=== PATIENT | male | born 1940 | race Native Hawaiian/Other Pacific Islander ===

== ENCOUNTER 2016-05-23 10:52 | Emergency (ER) | payer OTHER ==
[~2016-05-23] VITALS: Ht 172.7 cm; Wt 56.7 kg
[2016-05-23 11:00] VITALS: TEMP 98.1
[2016-05-23 11:36] VITALS: BP 140/76
== END 2016-05-23 11:36 | disposition home or self-care (01) ==
LOC: ED 10:52
DX: K62.89 Other specified diseases of anus and rectum (principal)
CPT/HCPCS: 82272; 99283

== ENCOUNTER 2016-06-27 19:11 | Outpatient (CLI) | payer OTHER ==
[2016-06-27] MEDS ORDERED: LORA1TAB17 PO (19:31)
[2016-06-27] MEDS ORDERED: ROSADAN 0.75% EX (19:32)
[2016-06-27] MEDS ORDERED: CITALOPRAM20 MG PO (19:32)
[2016-06-27] MEDS ORDERED: HYDR5TAB9 PO (19:34)
[2016-06-27] MEDS ORDERED: CLOTCRE5 EX (19:35)
[2016-06-27] MEDS ORDERED: TRAM50TA PO (19:36)
[2016-06-27] MEDS ORDERED: TRAZ100T OR (19:37)
[2016-06-27] MEDS ORDERED: TRIA0.1C5 TOP (19:38)
[2016-06-27] MEDS ORDERED: ASPIRIN 81 LOW81 MG PO (19:39)
== END 2016-06-27 19:14 | disposition short-term general hospital (02) ==
LOC: AMB 19:11
DX: M79.632 Pain in left forearm (principal); R07.89 Other chest pain; R53.1 Weakness; W18.39XA Other fall on same level, initial encounter; Y92.098 Other place in other non-institutional residence as the place of occurrence of the external cause
CPT/HCPCS: A0425; A0427

== ENCOUNTER 2016-06-27 19:23 | Inpatient (IN) | payer OTHER ==
[~2016-06-27] VITALS: Ht 182.9 cm; Wt 59.0 kg
[2016-06-27] MEDS ORDERED: LORA1TAB17 PO (19:31)
[2016-06-27] MEDS ORDERED: CITALOPRAM20 MG PO (19:32)
[2016-06-27] MEDS ORDERED: ROSADAN 0.75% EX (19:32)
[2016-06-27 19:34] VITALS: BP 146/72; TEMP 97.8
[2016-06-27] MEDS ORDERED: HYDR5TAB9 PO (19:34)
[2016-06-27] MEDS ORDERED: CLOTCRE5 EX (19:35)
[2016-06-27] MEDS ORDERED: TRAM50TA PO (19:36)
[2016-06-27] MEDS ORDERED: TRAZ100T OR (19:37)
[2016-06-27] MEDS ORDERED: TRIA0.1C5 TOP (19:38)
[2016-06-27] MEDS ORDERED: ASPIRIN 81 LOW81 MG PO (19:39)
[2016-06-27 20:03] LABS: PLATELET COUNT 216 K/uL (142-355)
[2016-06-27 20:18] LABS: POTASSIUM 3.9 mmol/L (3.6-5.2)
[2016-06-28] VITALS (24 sets, daily range): BP systolic 117–179; BP diastolic 54–92; TEMP 97–98.2; Ht 182.9 cm; Wt 59.0 kg
[2016-06-28 05:49] LABS: PLATELET COUNT 165 K/uL (142-355)
[2016-06-28 06:14] LABS: POTASSIUM 4.5 mmol/L (3.6-5.2)
[2016-06-28 14:29] LABS: POTASSIUM 4.2 mmol/L (3.6-5.2)
[2016-06-29] VITALS (17 sets, daily range): BP systolic 136–172; BP diastolic 52–92; TEMP 98–98.9
[2016-06-29 06:07] LABS: PLATELET COUNT 110 K/uL (142-355)
[2016-06-29 06:52] LABS: POTASSIUM 2.9 mmol/L (3.6-5.2)
[2016-06-30] VITALS: BP 142/48; TEMP 99.8
[2016-06-30 04:00] VITALS: BP 137/57; TEMP 99.1
[2016-06-30 05:34] LABS: PLATELET COUNT 94 K/uL (142-355)
[2016-06-30 05:51] LABS: POTASSIUM 3.3 mmol/L (3.6-5.2)
[2016-06-30 08:00] VITALS: BP 142/60; TEMP 98
[2016-06-30 12:00] VITALS: BP 143/58; TEMP 97.8
[2016-06-30 16:00] VITALS: BP 140/62; TEMP 98.3
[2016-06-30 20:00] VITALS: BP 147/62; TEMP 99.1
[2016-07-01] VITALS: BP 141/49; TEMP 97.8
[2016-07-01 04:00] VITALS: BP 162/67; TEMP 99
[2016-07-01 05:12] LABS: PLATELET COUNT 92 K/uL (142-355)
[2016-07-01 05:25] LABS: POTASSIUM 2.9 mmol/L (3.6-5.2); SODIUM 142 mmol/L (136-145)
[2016-07-01 08:00] VITALS: BP 142/53; TEMP 98.3
[2016-07-01 12:00] VITALS: BP 154/71; TEMP 98.7
[2016-07-01 16:00] VITALS: BP 176/67; TEMP 98.9
[2016-07-01 20:00] VITALS: BP 146/49; TEMP 98.2
[2016-07-02] VITALS: BP 151/68; TEMP 98.1
[2016-07-02 04:00] VITALS: BP 108/54; TEMP 99.3
[2016-07-02 06:58] LABS: PLATELET COUNT 109 K/uL (142-355)
[2016-07-02 07:09] LABS: POTASSIUM 3.4 mmol/L (3.6-5.2); SODIUM 137 mmol/L (136-145)
[2016-07-02 08:00] VITALS: BP 158/52; TEMP 98.4
[2016-07-02 12:00] VITALS: BP 146/68; TEMP 98.2
[2016-07-02 16:00] VITALS: BP 151/62; TEMP 98.1
[2016-07-02 20:00] VITALS: BP 165/54; TEMP 99.2
[2016-07-03] VITALS: BP 165/63; TEMP 99
[2016-07-03 04:00] VITALS: BP 140/74; TEMP 97.7
[2016-07-03 04:10] LABS: PLATELET COUNT 121 K/uL (142-355)
[2016-07-03 04:27] LABS: SODIUM 137 mmol/L (136-145)
[2016-07-03 08:00] VITALS: BP 152/60; TEMP 97.9
[2016-07-03 12:00] VITALS: BP 165/62; TEMP 98.8
[2016-07-03 16:07] VITALS: BP 168/90; TEMP 98.2
[2016-07-03 20:00] VITALS: BP 163/88; TEMP 98.6
[2016-07-04] VITALS: BP 165/99; TEMP 97.3
[2016-07-04 04:00] VITALS: BP 163/68; TEMP 97.6
[2016-07-04 08:00] VITALS: BP 169/67; TEMP 97.8
[2016-07-04 09:26] LABS: PLATELET COUNT 140 K/uL (142-355)
[2016-07-04 09:58] LABS: POTASSIUM 2.9 mmol/L (3.6-5.2); SODIUM 137 mmol/L (136-145)
[2016-07-04 12:00] VITALS: BP 151/61; TEMP 98
[2016-07-04 16:00] VITALS: BP 154/58; TEMP 97.8
[2016-07-04 20:00] VITALS: BP 159/71; TEMP 99.2
[2016-07-05] VITALS: BP 158/71; TEMP 98.3
[2016-07-05 04:00] VITALS: BP 169/94; TEMP 98.2
[2016-07-05 05:52] LABS: PLATELET COUNT 140 K/uL (142-355)
[2016-07-05 06:04] LABS: POTASSIUM 3.2 mmol/L (3.6-5.2); SODIUM 140 mmol/L (136-145)
[2016-07-05 08:00] VITALS: BP 180/81; TEMP 97.6
[2016-07-05 12:00] VITALS: BP 182/74; TEMP 98.6
[2016-07-05 15:24] VITALS: BP 176/72; TEMP 97.9
[2016-07-05 20:00] VITALS: BP 119/97; TEMP 98.3
[2016-07-06] VITALS: BP 148/73; TEMP 99.4
[2016-07-06 04:00] VITALS: BP 194/87; TEMP 98.4
[2016-07-06 05:11] LABS: PLATELET COUNT 152 K/uL (142-355)
[2016-07-06 05:51] LABS: POTASSIUM 3.4 mmol/L (3.6-5.2); SODIUM 137 mmol/L (136-145)
[2016-07-06 08:00] VITALS: BP 176/84; TEMP 98.6
[2016-07-06 12:20] VITALS: BP 162/78; TEMP 98.3
[2016-07-06 16:24] VITALS: BP 121/70; TEMP 97.7
[2016-07-06 20:00] VITALS: BP 135/64; TEMP 98.5
[2016-07-07] VITALS (7 sets, daily range): BP systolic 138–184; BP diastolic 47–77; TEMP 97.8–98.7
[2016-07-07 06:25] LABS: PLATELET COUNT 145 K/uL (142-355)
[2016-07-07 06:40] LABS: POTASSIUM 3.2 mmol/L (3.6-5.2); SODIUM 139 mmol/L (136-145)
[2016-07-08 04:00] VITALS: BP 128/79; TEMP 97.4
[2016-07-08 06:12] LABS: PLATELET COUNT 136 K/uL (142-355)
[2016-07-08 06:27] LABS: POTASSIUM 3.1 mmol/L (3.6-5.2); SODIUM 140 mmol/L (136-145)
[2016-07-08 07:59] VITALS: BP 174/75; TEMP 97.8
[2016-07-08 12:00] VITALS: BP 162/69; TEMP 98.4
[2016-07-08 16:00] VITALS: BP 162/76; TEMP 98.1
[2016-07-08 20:00] VITALS: BP 168/79; TEMP 97.9
[2016-07-09] VITALS: BP 170/60; TEMP 99.3
[2016-07-09 04:00] VITALS: BP 161/75; TEMP 98.1
[2016-07-09 08:00] VITALS: BP 162/74; TEMP 97.8
[2016-07-09 09:16] LABS: PLATELET COUNT 165 K/uL (142-355)
[2016-07-09 09:41] LABS: POTASSIUM 3.5 mmol/L (3.6-5.2); SODIUM 140 mmol/L (136-145)
[2016-07-09 12:00] VITALS: BP 150/82; TEMP 98
[2016-07-09 16:00] VITALS: BP 187/85; TEMP 97.1
[2016-07-09 20:00] VITALS: BP 144/76; TEMP 97.4
[2016-07-10] VITALS: BP 145/63; TEMP 97.6
[2016-07-10 04:00] VITALS: BP 156/95; TEMP 98.2
[2016-07-10 08:00] VITALS: BP 183/87; TEMP 97.9
[2016-07-10 08:12] LABS: PLATELET COUNT 176 K/uL (142-355)
[2016-07-10 08:24] LABS: POTASSIUM 3.7 mmol/L (3.6-5.2); SODIUM 140 mmol/L (136-145)
[2016-07-10 12:00] VITALS: BP 179/72; TEMP 97.8
[2016-07-10 16:00] VITALS: BP 151/72; TEMP 97.6
[2016-07-10 20:00] VITALS: BP 172/72; TEMP 98.4
[2016-07-11 00:27] VITALS: BP 165/78; TEMP 97.6
[2016-07-11 04:00] VITALS: BP 173/85; TEMP 98.6
[2016-07-11 05:21] LABS: PLATELET COUNT 214 K/uL (142-355)
[2016-07-11 05:26] LABS: SODIUM 139 mmol/L (136-145)
[2016-07-11 07:48] VITALS: BP 171/82; TEMP 99.1
[2016-07-11 12:12] VITALS: BP 173/75; TEMP 98.6
[2016-07-11 16:00] VITALS: BP 180/72; TEMP 98.4
[2016-07-11 20:00] VITALS: BP 172/77; TEMP 98.7
[2016-07-12 00:20] VITALS: BP 127/82; TEMP 98.5
[2016-07-12 04:20] VITALS: BP 169/84; TEMP 98.3
[2016-07-12 05:12] LABS: PLATELET COUNT 234 K/uL (142-355)
[2016-07-12 05:34] LABS: POTASSIUM 3.2 mmol/L (3.6-5.2); SODIUM 134 mmol/L (136-145)
[2016-07-12 08:00] VITALS: BP 182/95; TEMP 99.1
[2016-07-12 16:00] VITALS: BP 104/56; TEMP 98
[2016-07-12 20:00] VITALS: BP 130/46; TEMP 98.5
[2016-07-13] VITALS: BP 106/55; TEMP 98
[2016-07-13 04:00] VITALS: BP 129/64; TEMP 97.7
[2016-07-13 05:42] LABS: PLATELET COUNT 185 K/uL (142-355)
[2016-07-13 06:34] LABS: POTASSIUM 3.4 mmol/L (3.6-5.2)
[2016-07-13 12:00] VITALS: BP 128/65; TEMP 98.3
[2016-07-13 16:00] VITALS: BP 149/65; TEMP 97.8
[2016-07-13 20:00] VITALS: BP 129/64; TEMP 99
[2016-07-14] VITALS: BP 132/58; TEMP 98
[2016-07-14 04:00] VITALS: BP 111/54; TEMP 98.2
[2016-07-14 06:46] LABS: PLATELET COUNT 180 K/uL (142-355)
[2016-07-14 07:15] LABS: POTASSIUM 3.3 mmol/L (3.6-5.2); SODIUM 138 mmol/L (136-145)
[2016-07-14 08:00] VITALS: BP 140/67; TEMP 97.8
[2016-07-14 12:00] VITALS: BP 132/61; TEMP 98
[2016-07-14 16:00] VITALS: BP 139/61; TEMP 99
[2016-07-14 20:00] VITALS: BP 154/73; TEMP 98.7
[2016-07-15] VITALS (7 sets, daily range): BP systolic 115–169; BP diastolic 54–87; TEMP 97.8–98.7
[2016-07-16 04:00] VITALS: BP 147/72; TEMP 98.8
[2016-07-16 08:22] VITALS: BP 132/85; TEMP 98.4
[2016-07-16 11:32] VITALS: BP 140/75; TEMP 98.2
== END 2016-07-16 14:59 | disposition swing bed (61) | DRG 683 ==
LOC: ED 19:23 → ICU 22:00 → MED/SURG 06-29 18:00
PROVIDERS: Emergency Medicine; Internal Medicine; ADMIT Emergency Medicine
DX: N17.8 Other acute kidney failure (principal); M62.82 Rhabdomyolysis; E46 Unspecified protein-calorie malnutrition; E86.0 Dehydration; E87.6 Hypokalemia; E83.41 Hypermagnesemia; E88.09 Other disorders of plasma-protein metabolism, not elsewhere classified; E83.51 Hypocalcemia; R39.2 Extrarenal uremia; M48.06 Spinal stenosis, lumbar region; M62.81 Muscle weakness (generalized); E53.8 Deficiency of other specified B group vitamins; R62.7 Adult failure to thrive; R15.9 Full incontinence of feces; N39.498 Other specified urinary incontinence; S80.219A Abrasion, unspecified knee, initial encounter; S30.810A Abrasion of lower back and pelvis, initial encounter; W18.39XA Other fall on same level, initial encounter; Y93.89 Activity, other specified; Y92.89 Other specified places as the place of occurrence of the external cause
CPT/HCPCS: 36415; 80048; 80053; 81000; 82550; 82553; 82570; 82607; 82747; 83735; 84100; 84300; 84443; 84484; 84540; 85027; 86318; 86340; 87040; 87205; 93005; 96361; 96365; 96368; 96372; 99284; J0696; J1650; J1885; J2060; J2310; J2405; J2543; J3420; J3475; J3480; J3490

== ENCOUNTER 2016-07-16 15:00 | Inpatient (IN) | payer OTHER ==
[~2016-07-16] VITALS: Ht 182.9 cm; Wt 52.2 kg
[~2016-07-16 15:00] MED LIST: ASPIRIN 81 LOW81 MG PO; CITALOPRAM20 MG PO; CLOTCRE5 EX; HYDR5TAB9 PO; LORA1TAB17 PO; ROSADAN 0.75% EX; TRAM50TA PO; TRAZ100T OR; TRIA0.1C5 TOP
[2016-07-16 17:44] LABS: PLATELET COUNT 226 K/uL (142-355)
[2016-07-16 17:47] VITALS: BP 140/75; TEMP 98.2; Ht 182.9 cm; Wt 52.2 kg
[2016-07-16 18:03] LABS: POTASSIUM 3.3 mmol/L (3.6-5.2); SODIUM 137 mmol/L (136-145)
[2016-07-16 20:02] VITALS: BP 126/54; TEMP 98.9
[2016-07-17 08:00] VITALS: BP 148/77; TEMP 98.3
[2016-07-17 20:00] VITALS: BP 139/68; TEMP 98.7
[2016-07-18 08:00] VITALS: BP 145/64; TEMP 99
[2016-07-18 20:00] VITALS: BP 150/57; TEMP 98.7
[2016-07-19 09:05] VITALS: BP 144/71; TEMP 98.6
[2016-07-19 20:00] VITALS: BP 120/64; TEMP 98.9
--- NOTE | 2016-07-20 01:14 | NUR ---
07/20/16 0115 RESTING QUEITLY WITH EYES CLOSED.CC
--- NOTE | 2016-07-20 02:39 | NUR ---
07/20/16 0239 AWAKE URINAL EMPTIED WITH 250 ML URINE NAD NOTED.CC
--- NOTE | 2016-07-20 05:41 | NUR ---
07/20/16 0530 PT BRIEF CHANGED TUURNED AND REPOSTIONED FOR COMFORT.CC
[2016-07-20 08:30] VITALS: BP 135/65; TEMP 98.9
--- NOTE | 2016-07-20 19:40 | NUR ---
1500 Clotrimazole cream applied to groin irritation. Two stage 1 pressure sores noted to left buttock and midline sacral area. Skin barrier cream applied to both. Diffuse macular red rash noted to back. Each macule noted to be approximately 1 cm in diameter.
--- NOTE | 2016-07-21 15:07 | NUR ---
1430 REPORT GIVEN TO PAULINE HARGROVE RN. OPPORTUNITY TO SK QUESTIONS GIVEN.
[2016-07-21 20:00] VITALS: BP 113/57; TEMP 98.2
[2016-07-22 08:00] VITALS: BP 132/74; TEMP 97.8
[2016-07-22 20:00] VITALS: BP 131/60; TEMP 98.1
[2016-07-23 05:53] LABS: PLATELET COUNT 211 K/uL (142-355)
[2016-07-23 06:19] LABS: POTASSIUM 4.3 mmol/L (3.6-5.2); SODIUM 137 mmol/L (136-145)
--- NOTE | 2016-07-23 13:00 | NUR ---
Pt. SHAVING HIMSELF. Pt. WALKS WITH PT. REFUSE TO SIT UP IN CHAIR. REDNESS L ELBOW.
[2016-07-23 20:00] VITALS: BP 127/64; TEMP 98.1
--- NOTE | 2016-07-24 16:00 | NUR ---
CHANGED BED TO MATTRESS THAT ASSIST WITH ROTATION AND PRESSURE PIONTS. Pt. MASSAGED Q2HRS.
--- NOTE | 2016-07-24 17:00 | NUR ---
ASSIST Pt. OUT OF BED TO CHAIR.
[2016-07-25 07:44] VITALS: BP 124/58; TEMP 98.3
[2016-07-25 20:00] VITALS: BP 110/55; TEMP 98.1
--- NOTE | 2016-07-26 01:44 | NUR ---
07/25/16 AT 2200ANTIBIOTIC OINTMENT APPLIED TO SMALL SCABBED OVER AREA TO L ELBOW, AREA APPEARS TO BE HEALING. COVERED WITH TELFA, GAUZE, AND SECURED WITH PAPER TAPE AND BRIAN. PT TOLERATED WITH NO PROBLEMS.
--- NOTE | 2016-07-26 01:47 | NUR ---
07/24/16 AT 2350 ANTIBIOTIC OINTMENT APPLIED TO SCABBED OVER AREA ON L ELBOW, COVERED WITH TELFA AND GAUZE THEN WRAPPED WITH BRIAN, PT TOLERATED WITH NO PROBLEMS.
[2016-07-26 08:00] VITALS: BP 140/68; TEMP 98.2
--- NOTE | 2016-07-26 11:04 | NUR ---
Friday07/24/16 PATIENT IS DOING WELL, HE IS PARTICIPATING IN THERAPY AND IS PROGRESSING WELL, SLOWLY BUT PROGRESSING. PATIENT IS ABLE TO GET UP OOB WITH ASSISTANCE AND AMBULATE WITH WALKER AND ASSISTANCE DOWN THE NGUYEN. PATIENT ALSO HAS A VERY PLEASANT AND POSITIVE ATTITUDE. WILL CONTINUE CURRENT CARE AND TREATMENT UNTIL PATIENT HAS MET GOALS AND IS READY FOR DISCHARGE.
[2016-07-26 20:00] VITALS: BP 123/58; TEMP 97.6
--- NOTE | 2016-07-26 21:48 | NUR ---
PT REFUSED TO BE TURNED AT THIS TIME. STATED "I TURNED MYSELF"
[2016-07-27 08:05] VITALS: BP 129/67; TEMP 98.6
--- NOTE | 2016-07-27 19:40 | NUR ---
DRESSINGS CHANGED @ 1730, FAMILY MEMBER IN ROOM, BRIEF ALSO CHANGED, BLOOD FOUND ON BRIEF, COMING FROM PENIS. EXAMINED PENIS, PULLED [place] BACK TO REVEAL HEAD OF PENIS, SMALL AMOUNT OF BLOOD FOUND ON TIP, OINTMENT AROUND HEAD OF PENIS, INSTRUCTED PT TO PULL FORESKIN BACK AND CLEAN PENIS WHEN PT URINATES. EMOLIENT APPLIED TO AREA PER MELIA MOURA. PT TOLERATED WELL, NO C/O VOICED.
[2016-07-28 08:00] VITALS: BP 137/90; TEMP 98.2
[2016-07-28 20:00] VITALS: BP 105/48; TEMP 98.7
[2016-07-29 08:00] VITALS: BP 143/69; TEMP 98.1
[2016-07-29 20:00] VITALS: BP 125/60; TEMP 98.4
[2016-07-30 06:18] LABS: PLATELET COUNT 223 K/uL (142-355)
[2016-07-30 06:42] LABS: POTASSIUM 4.9 mmol/L (3.6-5.2); SODIUM 132 mmol/L (136-145)
[2016-07-30 07:51] VITALS: BP 109/72; TEMP 98.7
--- NOTE | 2016-07-30 12:16 | NUR ---
ATTEMPT TO CALL REPORT TO TAL HAIRSTON LPN. TAL WILL RETURN CALL.
== END 2016-07-30 12:55 | DRG 556 ==
LOC: MED/SURG 15:00
PROVIDERS: ADMIT Emergency Medicine
DX: M62.81 Muscle weakness (generalized) (principal); D51.0 Vitamin B12 deficiency anemia due to intrinsic factor deficiency; M62.58 Muscle wasting and atrophy, not elsewhere classified, other site; R62.7 Adult failure to thrive
CPT/HCPCS: 36415; 80053; 85007; 85027; 87045; 87205; 87328; 87329; 87493; 87798; 87899; 96372; J3420

== ENCOUNTER 2016-07-30 13:58 | Inpatient (IN) | payer OTHER | END 2016-08-17 16:11 | disposition still patient (30) | LOC: PAVC 13:58 | PROVIDERS: ADMIT Internal Medicine | DX: Z51.89 Encounter for other specified aftercare (principal) | CPT/HCPCS: 36415; 82607 ==

== ENCOUNTER 2016-08-02 22:55 | Outpatient (CLI) | payer OTHER | END 2016-08-02 23:50 | disposition home or self-care (01) | LOC: LAB 22:55 | DX: Z16.24 Resistance to multiple antibiotics (principal) | CPT/HCPCS: 87081 ==

== ENCOUNTER 2016-08-17 16:44 | Inpatient (IN) | payer OTHER | END 2016-09-17 13:00 | disposition still patient (30) | LOC: PAVC 16:44 | PROVIDERS: ADMIT Internal Medicine | DX: M62.81 Muscle weakness (generalized) (principal); R26.89 Other abnormalities of gait and mobility; R62.7 Adult failure to thrive; M62.59 Muscle wasting and atrophy, not elsewhere classified, multiple sites; G89.4 Chronic pain syndrome; M62.82 Rhabdomyolysis ==

== ENCOUNTER 2016-09-17 14:11 | Inpatient (IN) | payer OTHER | END 2016-10-18 09:46 | disposition still patient (30) | LOC: PAVC 14:11 | PROVIDERS: ADMIT Internal Medicine | DX: Z51.89 Encounter for other specified aftercare (principal) ==

== ENCOUNTER 2016-10-18 10:33 | Inpatient (IN) | payer OTHER | END 2016-11-17 09:37 | disposition still patient (30) | LOC: PAVC 10:33 | PROVIDERS: ADMIT Internal Medicine | DX: Z51.89 Encounter for other specified aftercare (principal) ==

== ENCOUNTER 2016-11-17 10:00 | Inpatient (IN) | payer OTHER | END 2016-12-18 14:20 | disposition still patient (30) | LOC: PAVC 10:00 | PROVIDERS: ADMIT Internal Medicine ==

== ENCOUNTER 2016-12-18 15:10 | Inpatient (IN) | payer OTHER | END 2017-01-17 10:30 | disposition still patient (30) | LOC: PAVC 15:10 | PROVIDERS: ADMIT Internal Medicine ==

== ENCOUNTER 2017-01-17 10:57 | Inpatient (IN) | payer OTHER | END 2017-02-17 10:58 | disposition still patient (30) | LOC: PAVC 10:57 | PROVIDERS: ADMIT Internal Medicine ==

== ENCOUNTER 2017-01-21 05:51 | Outpatient (CLI) | payer OTHER ==
[2017-01-21 06:44] LABS: PLATELET COUNT 213 K/uL (142-355)
[2017-01-21 07:02] LABS: POTASSIUM 4.1 mmol/L (3.6-5.2); SODIUM 136 mmol/L (136-145)
== END 2017-01-21 06:55 | disposition home or self-care (01) ==
LOC: LAB 05:51
PROVIDERS: Internal Medicine
DX: R03.0 Elevated blood-pressure reading, without diagnosis of hypertension (principal); D51.0 Vitamin B12 deficiency anemia due to intrinsic factor deficiency; F33.0 Major depressive disorder, recurrent, mild
CPT/HCPCS: 80053; 82607; 85027

== ENCOUNTER 2017-02-17 11:48 | Inpatient (IN) | payer OTHER | END 2017-03-20 11:13 | disposition still patient (30) | LOC: PAVC 11:48 | PROVIDERS: ADMIT Internal Medicine ==

== ENCOUNTER 2017-03-20 12:31 | Inpatient (IN) | payer OTHER | END 2017-04-17 10:39 | disposition still patient (30) | LOC: PAVC 12:31 | PROVIDERS: ADMIT Internal Medicine ==

== ENCOUNTER 2017-04-17 10:59 | Inpatient (IN) | payer OTHER | END 2017-05-18 08:00 | disposition still patient (30) | LOC: PAVC 10:59 | PROVIDERS: ADMIT Internal Medicine ==

== ENCOUNTER 2017-05-18 09:00 | Inpatient (IN) | payer OTHER | END 2017-06-17 10:29 | disposition still patient (30) | LOC: PAVC 09:00 | PROVIDERS: ADMIT Internal Medicine ==

== ENCOUNTER 2017-06-17 10:54 | Inpatient (IN) | payer OTHER | END 2017-07-18 10:25 | disposition still patient (30) | LOC: PAVC 10:54 | PROVIDERS: ADMIT Internal Medicine ==

== ENCOUNTER 2017-07-18 10:51 | Inpatient (IN) | payer OTHER | END 2017-08-17 15:06 | disposition still patient (30) | LOC: PAVC 10:51 | PROVIDERS: ADMIT Internal Medicine ==

== ENCOUNTER 2017-07-21 05:18 | Outpatient (CLI) | payer OTHER ==
[2017-07-21 06:22] LABS: PLATELET COUNT 383 K/uL (142-355)
[2017-07-21 07:12] LABS: POTASSIUM 4.9 mmol/L (3.6-5.2)
== END 2017-07-21 21:58 | disposition home or self-care (01) ==
LOC: LAB 05:18
PROVIDERS: Internal Medicine
DX: D64.89 Other specified anemias (principal)
CPT/HCPCS: 80053; 82607; 85007; 85027

== ENCOUNTER 2017-08-17 15:34 | Inpatient (IN) | payer OTHER | END 2017-09-17 08:00 | disposition still patient (30) | LOC: PAVC 15:34 | PROVIDERS: ADMIT Internal Medicine ==

== ENCOUNTER 2017-09-17 09:00 | Inpatient (IN) | payer OTHER | END 2017-10-18 11:12 | disposition still patient (30) | LOC: PAVC 09:00 | PROVIDERS: ADMIT Internal Medicine ==

== ENCOUNTER 2017-10-18 11:37 | Inpatient (IN) | payer OTHER | END 2017-11-17 14:36 | disposition still patient (30) | LOC: PAVC 11:37 | PROVIDERS: ADMIT Internal Medicine ==

== ENCOUNTER 2017-11-17 15:38 | Inpatient (IN) | payer OTHER | END 2017-12-18 10:33 | disposition still patient (30) | LOC: PAVC 15:38 | PROVIDERS: ADMIT Internal Medicine ==

== ENCOUNTER 2017-12-18 11:31 | Inpatient (IN) | payer OTHER | END 2018-01-17 07:21 | disposition still patient (30) | LOC: PAVC 11:31 | PROVIDERS: ADMIT Internal Medicine ==

== ENCOUNTER 2018-01-17 07:50 | Inpatient (IN) | payer OTHER | END 2018-02-17 09:37 | disposition still patient (30) | LOC: PAVC 07:50 | PROVIDERS: ADMIT Internal Medicine ==

== ENCOUNTER 2018-01-20 04:10 | Outpatient (CLI) | payer OTHER ==
[2018-01-20 07:07] LABS: PLATELET COUNT 220 K/uL (142-355)
[2018-01-20 07:08] LABS: POTASSIUM 4.1 mmol/L (3.6-5.2)
== END 2018-01-20 21:17 | disposition home or self-care (01) ==
LOC: LAB 04:10
PROVIDERS: Internal Medicine
DX: D64.9 Anemia, unspecified (principal); M62.81 Muscle weakness (generalized)
CPT/HCPCS: 80053; 82607; 85027

== ENCOUNTER 2018-02-17 10:01 | Inpatient (IN) | payer OTHER | END 2018-03-20 09:38 | disposition still patient (30) | LOC: PAVC 10:01 | PROVIDERS: ADMIT Internal Medicine ==

== ENCOUNTER 2018-03-20 10:22 | Inpatient (IN) | payer OTHER | END 2018-04-17 13:47 | disposition still patient (30) | LOC: PAVC 10:22 | PROVIDERS: ADMIT Internal Medicine ==

== ENCOUNTER 2018-04-17 14:16 | Inpatient (IN) | payer OTHER | END 2018-05-18 12:31 | disposition still patient (30) | LOC: PAVC 14:16 | PROVIDERS: ADMIT Internal Medicine ==

== ENCOUNTER 2018-04-23 16:42 | Outpatient (CLI) | payer OTHER | END 2018-04-23 20:00 | disposition home or self-care (01) | LOC: LAB 16:42 | DX: M79.18 Myalgia, other site (principal); G89.29 Other chronic pain | CPT/HCPCS: 85651 ==

== ENCOUNTER 2018-05-18 12:53 | Inpatient (IN) | payer OTHER | END 2018-06-17 13:43 | disposition still patient (30) | LOC: PAVC 12:53 | PROVIDERS: ADMIT Internal Medicine ==

== ENCOUNTER 2018-06-02 14:53 | Outpatient (CLI) | payer OTHER | END 2018-06-02 22:51 | disposition home or self-care (01) | LOC: LAB 14:53 | DX: Z12.5 Encounter for screening for malignant neoplasm of prostate (principal); D51.8 Other vitamin B12 deficiency anemias | CPT/HCPCS: 36415; 82607; 84153 ==

== ENCOUNTER 2018-06-17 14:14 | Inpatient (IN) | payer OTHER | END 2018-07-18 09:40 | disposition still patient (30) | LOC: PAVC 14:14 | PROVIDERS: ADMIT Internal Medicine | DX: Z51.89 Encounter for other specified aftercare (principal) ==

== ENCOUNTER 2018-07-18 10:07 | Inpatient (IN) | payer OTHER | END 2018-08-17 12:19 | disposition still patient (30) | LOC: PAVC 10:07 | PROVIDERS: ADMIT Internal Medicine ==

== ENCOUNTER 2018-07-21 03:17 | Outpatient (CLI) | payer OTHER ==
[2018-07-21 04:16] LABS: PLATELET COUNT 201 K/uL (142-355)
[2018-07-21 04:29] LABS: POTASSIUM 4.2 mmol/L (3.6-5.2)
== END 2018-07-21 19:11 | disposition home or self-care (01) ==
LOC: LAB 03:17
PROVIDERS: Internal Medicine
DX: D51.8 Other vitamin B12 deficiency anemias (principal); R68.89 Other general symptoms and signs
CPT/HCPCS: 36415; 80053; 82607; 85027

== ENCOUNTER 2018-08-17 12:34 | Inpatient (IN) | payer OTHER | END 2018-09-17 12:32 | disposition still patient (30) | LOC: PAVC 12:34 | PROVIDERS: ADMIT Internal Medicine ==

== ENCOUNTER 2018-09-17 14:18 | Inpatient (IN) | payer OTHER | END 2018-10-18 17:17 | disposition still patient (30) | LOC: PAVC 14:18 | PROVIDERS: ADMIT Internal Medicine ==

== ENCOUNTER 2018-10-18 17:44 | Inpatient (IN) | payer OTHER | END 2018-11-17 12:58 | disposition still patient (30) | LOC: PAVC 17:44 | PROVIDERS: ADMIT Internal Medicine ==

== ENCOUNTER 2018-11-17 13:33 | Inpatient (IN) | payer OTHER | END 2018-12-18 14:14 | disposition still patient (30) | LOC: PAVC 13:33 | PROVIDERS: ADMIT Internal Medicine ==

== ENCOUNTER 2018-12-18 14:53 | Inpatient (IN) | payer OTHER | END 2019-01-17 08:00 | disposition still patient (30) | LOC: PAVC 14:53 | PROVIDERS: ADMIT Internal Medicine ==

== ENCOUNTER 2019-01-17 11:00 | Inpatient (IN) | payer OTHER | END 2019-02-17 09:31 | disposition still patient (30) | LOC: PAVC 11:00 | PROVIDERS: ADMIT Internal Medicine ==

== ENCOUNTER 2019-01-18 06:43 | Outpatient (CLI) | payer OTHER ==
[2019-01-18 08:20] LABS: PLATELET COUNT 186 K/uL (142-355)
[2019-01-18 08:29] LABS: POTASSIUM 4.1 mmol/L (3.6-5.2)
== END 2019-01-18 20:54 | disposition home or self-care (01) ==
LOC: LAB 06:43
PROVIDERS: Internal Medicine
DX: I12.9 Hypertensive chronic kidney disease with stage 1 through stage 4 chronic kidney disease, or unspecified chronic kidney disease (principal); N18.9 Chronic kidney disease, unspecified; Z51.81 Encounter for therapeutic drug level monitoring; D51.0 Vitamin B12 deficiency anemia due to intrinsic factor deficiency
CPT/HCPCS: 80053; 82607; 85027

== ENCOUNTER 2019-02-17 09:59 | Inpatient (IN) | payer OTHER | END 2019-03-20 10:45 | disposition still patient (30) | LOC: PAVC 09:59 | PROVIDERS: ADMIT Internal Medicine ==

== ENCOUNTER 2019-03-20 11:14 | Inpatient (IN) | payer OTHER | END 2019-04-18 14:11 | disposition still patient (30) | LOC: PAVC 11:14 | PROVIDERS: ADMIT Internal Medicine ==

== ENCOUNTER 2019-04-18 14:40 | Inpatient (IN) | payer OTHER | END 2019-05-19 11:44 | disposition still patient (30) | LOC: PAVC 14:40 | PROVIDERS: ADMIT Internal Medicine ==

== ENCOUNTER 2019-05-19 12:12 | Inpatient (IN) | payer OTHER | END 2019-06-18 11:22 | disposition still patient (30) | LOC: PAVC 12:12 | PROVIDERS: ADMIT Internal Medicine ==

== ENCOUNTER 2019-06-18 11:57 | Inpatient (IN) | payer OTHER | END 2019-07-19 11:21 | disposition still patient (30) | LOC: PAVC 11:57 | PROVIDERS: ADMIT Internal Medicine ==

== ENCOUNTER 2019-06-28 15:07 | Outpatient (CLI) | payer OTHER ==
[2019-06-28 15:19] LABS: PLATELET COUNT 140 K/uL (142-355)
[2019-06-28 15:37] LABS: POTASSIUM 4.1 mmol/L (3.6-5.2)
== END 2019-06-28 22:21 | disposition home or self-care (01) ==
LOC: LAB 15:07 → RESP 15:07 → LAB 22:21
PROVIDERS: Internal Medicine
DX: U07.1 COVID-19 (principal); Z79.899 Other long term (current) drug therapy
CPT/HCPCS: 80053; 85027; 85379; 86140; 93005

== ENCOUNTER 2019-07-05 06:59 | Outpatient (CLI) | payer OTHER ==
[2019-07-05 07:58] LABS: POTASSIUM 4.2 mmol/L (3.6-5.2)
== END 2019-07-05 19:39 | disposition home or self-care (01) ==
LOC: LAB 06:59
PROVIDERS: Internal Medicine
DX: U07.1 COVID-19 (principal)
CPT/HCPCS: 80048

== ENCOUNTER 2019-07-06 11:43 | Outpatient (CLI) | payer OTHER | END 2019-07-06 19:12 | disposition home or self-care (01) | LOC: LAB 11:43 | DX: D51.8 Other vitamin B12 deficiency anemias (principal) | CPT/HCPCS: 82607; 82746 ==

== ENCOUNTER 2019-07-19 11:48 | Inpatient (IN) | payer OTHER | END 2019-08-18 11:55 | disposition still patient (30) | LOC: PAVC 11:48 | PROVIDERS: ADMIT Internal Medicine | CPT/HCPCS: 87635; U0002 ==

== ENCOUNTER 2019-07-20 02:45 | Outpatient (CLI) | payer OTHER ==
[2019-07-20 06:06] LABS: PLATELET COUNT 205 K/uL (142-355)
[2019-07-20 06:10] LABS: POTASSIUM 4.1 mmol/L (3.6-5.2)
== END 2019-07-20 19:03 | disposition home or self-care (01) ==
LOC: LAB 02:45
PROVIDERS: Internal Medicine
DX: R62.7 Adult failure to thrive (principal); I10 Essential (primary) hypertension
CPT/HCPCS: 80053; 82607; 85027

== ENCOUNTER 2019-08-18 12:10 | Inpatient (IN) | payer OTHER | END 2019-09-18 10:14 | disposition still patient (30) | LOC: PAVC 12:10 | PROVIDERS: ADMIT Internal Medicine ==

== ENCOUNTER 2019-09-18 10:30 | Inpatient (IN) | payer OTHER | END 2019-10-19 14:02 | disposition still patient (30) | LOC: PAVC 10:30 | PROVIDERS: ADMIT Internal Medicine ==

== ENCOUNTER 2019-10-15 06:39 | Outpatient (CLI) | payer OTHER | END 2019-10-15 20:28 | disposition home or self-care (01) | LOC: LAB 06:39 | DX: Z12.5 Encounter for screening for malignant neoplasm of prostate (principal); N40.0 Benign prostatic hyperplasia without lower urinary tract symptoms | CPT/HCPCS: 84153 ==

== ENCOUNTER 2019-10-19 14:42 | Inpatient (IN) | payer OTHER | END 2019-11-18 14:09 | disposition still patient (30) | LOC: PAVC 14:42 | PROVIDERS: ADMIT Internal Medicine ==

== ENCOUNTER 2019-11-18 15:06 | Inpatient (IN) | payer OTHER | END 2019-12-19 08:00 | disposition still patient (30) | LOC: PAVC 15:06 | PROVIDERS: ADMIT Internal Medicine ==

== ENCOUNTER 2019-12-18 08:00 | Outpatient (CLI) | payer OTHER | END 2019-12-18 17:00 | LOC: CCM 08:00 | PROVIDERS: ATTEND Nurse Practitioner Family | DX: I10 Essential (primary) hypertension (principal) | CPT/HCPCS: 99453; 99454 ==

== ENCOUNTER 2019-12-19 09:00 | Inpatient (IN) | payer OTHER | END 2020-01-18 12:25 | disposition still patient (30) | LOC: PAVC 09:00 | PROVIDERS: ADMIT Internal Medicine; ATTEND Internal Medicine ==

== ENCOUNTER 2020-01-18 07:05 | Outpatient (CLI) | payer OTHER ==
[2020-01-18 08:09] LABS: PLATELET COUNT 149 K/uL (142-355)
[2020-01-18 08:26] LABS: POTASSIUM 3.5 mmol/L (3.6-5.2)
== END 2020-01-18 22:21 | disposition home or self-care (01) ==
LOC: LAB 07:05
PROVIDERS: ATTEND Internal Medicine
DX: R62.7 Adult failure to thrive (principal); I10 Essential (primary) hypertension
CPT/HCPCS: 80053; 82607; 85027

== ENCOUNTER 2020-01-18 12:43 | Inpatient (IN) | payer OTHER | END 2020-02-18 09:47 | disposition still patient (30) | LOC: PAVC 12:43 | PROVIDERS: ADMIT Internal Medicine; ATTEND Internal Medicine | CPT/HCPCS: 87101 ==

== ENCOUNTER 2020-02-17 16:02 | Outpatient (CLI) | payer OTHER | END 2020-02-17 19:08 | disposition home or self-care (01) | LOC: LAB 16:02 | PROVIDERS: ATTEND Internal Medicine | DX: R21 Rash and other nonspecific skin eruption (principal) ==

== ENCOUNTER 2020-02-18 10:03 | Inpatient (IN) | payer OTHER | END 2020-03-20 15:30 | disposition still patient (30) | LOC: PAVC 10:03 | PROVIDERS: ADMIT Internal Medicine; ATTEND Internal Medicine ==

== ENCOUNTER 2020-03-20 15:43 | Inpatient (IN) | payer OTHER | END 2020-04-17 11:16 | disposition still patient (30) | LOC: PAVC 15:43 | PROVIDERS: ADMIT Internal Medicine; ATTEND Internal Medicine ==

== ENCOUNTER 2020-04-17 11:40 | Inpatient (IN) | payer OTHER | END 2020-05-18 12:22 | disposition still patient (30) | LOC: PAVC 11:40 | PROVIDERS: ADMIT Internal Medicine; ATTEND Internal Medicine ==

== ENCOUNTER 2020-05-18 12:26 | Inpatient (IN) | payer OTHER | END 2020-06-17 11:25 | disposition still patient (30) | LOC: PAVC 12:26 | PROVIDERS: ADMIT Internal Medicine; ATTEND Internal Medicine ==

== ENCOUNTER 2020-06-01 12:08 | Outpatient (CLI) | payer OTHER ==
[2020-06-01 12:32] LABS: POTASSIUM 4.1 mmol/L (3.6-5.2)
[2020-06-01 14:27] LABS: PLATELET COUNT 186 K/uL (142-355)
[2020-06-01 14:51] LABS: PARTIAL THROMBOPLASTIN TIME 22.8 SECONDS (24.5-33.6)
== END 2020-06-01 21:21 | disposition home or self-care (01) ==
LOC: LAB 12:08
PROVIDERS: ATTEND Internal Medicine
DX: R23.3 Spontaneous ecchymoses (principal); Z51.81 Encounter for therapeutic drug level monitoring; N18.9 Chronic kidney disease, unspecified; I12.9 Hypertensive chronic kidney disease with stage 1 through stage 4 chronic kidney disease, or unspecified chronic kidney disease
CPT/HCPCS: 80053; 85027; 85610; 85730

== ENCOUNTER 2020-06-02 10:21 | Outpatient (CLI) | payer OTHER | END 2020-06-02 21:19 | disposition home or self-care (01) | LOC: RAD 10:21 | PROVIDERS: ATTEND Internal Medicine | DX: M54.5 Low back pain (principal) ==

== ENCOUNTER 2020-06-12 12:08 | Outpatient (CLI) | payer OTHER | END 2020-06-12 19:34 | disposition home or self-care (01) | LOC: US 12:08 | PROVIDERS: ATTEND Internal Medicine | DX: M79.605 Pain in left leg (principal) ==

== ENCOUNTER 2020-06-17 11:41 | Inpatient (IN) | payer OTHER | END 2020-07-18 15:44 | disposition still patient (30) | LOC: PAVC 11:41 | PROVIDERS: ADMIT Internal Medicine; ATTEND Internal Medicine ==

== ENCOUNTER 2020-07-18 08:06 | Outpatient (CLI) | payer OTHER ==
[2020-07-18 10:25] LABS: POTASSIUM 3.6 mmol/L (3.6-5.2)
[2020-07-19 06:20] LABS: PLATELET COUNT 158 K/uL (142-355)
== END 2020-07-18 22:05 | disposition home or self-care (01) ==
LOC: LAB 08:06
PROVIDERS: ATTEND Internal Medicine
DX: R62.7 Adult failure to thrive (principal); I10 Essential (primary) hypertension; Z12.5 Encounter for screening for malignant neoplasm of prostate
CPT/HCPCS: 80053; 82607; 84153; 85027

== ENCOUNTER 2020-07-18 16:43 | Inpatient (IN) | payer OTHER | END 2020-08-17 08:00 | disposition still patient (30) | LOC: PAVC 16:43 | PROVIDERS: ADMIT Internal Medicine; ATTEND Internal Medicine ==

== ENCOUNTER 2020-08-17 09:00 | Inpatient (IN) | payer OTHER | END 2020-09-17 08:00 | disposition still patient (30) | LOC: PAVC 09:00 | PROVIDERS: ADMIT Internal Medicine; ATTEND Internal Medicine ==

== ENCOUNTER 2020-08-18 21:33 | Outpatient (CLI) | payer OTHER | END 2020-08-18 23:00 | disposition home or self-care (01) | LOC: LAB 21:33 | PROVIDERS: ATTEND Internal Medicine | DX: R39.81 Functional urinary incontinence (principal) | CPT/HCPCS: 81000 ==

== ENCOUNTER 2020-09-17 09:00 | Inpatient (IN) | payer OTHER | END 2020-10-18 13:50 | disposition still patient (30) | LOC: PAVC 09:00 | PROVIDERS: ADMIT Internal Medicine; ATTEND Internal Medicine ==

== ENCOUNTER 2020-10-18 14:05 | Inpatient (IN) | payer OTHER | END 2020-11-17 09:38 | disposition still patient (30) | LOC: PAVC 14:05 | PROVIDERS: ADMIT Internal Medicine; ATTEND Internal Medicine ==

== ENCOUNTER 2020-10-19 08:16 | Outpatient (CLI) | payer OTHER | END 2020-10-19 22:09 | disposition home or self-care (01) | LOC: LAB 08:16 | PROVIDERS: ATTEND Internal Medicine | DX: D51.0 Vitamin B12 deficiency anemia due to intrinsic factor deficiency (principal) | CPT/HCPCS: 82607 ==

== ENCOUNTER 2020-11-03 15:35 | Outpatient (CLI) | payer OTHER | END 2020-11-03 19:21 | disposition home or self-care (01) | LOC: RAD 15:35 | PROVIDERS: ATTEND Internal Medicine | DX: R60.0 Localized edema (principal) ==

== ENCOUNTER 2021-01-17 08:45 | Outpatient (CLI) | payer OTHER ==
[2021-01-17 09:53] LABS: PLATELET COUNT 165 K/uL (142-355)
[2021-01-17 10:00] LABS: POTASSIUM 3.4 mmol/L (3.6-5.2)
== END 2021-01-17 20:13 | disposition home or self-care (01) ==
LOC: LAB 08:45
PROVIDERS: ATTEND Internal Medicine
DX: R62.7 Adult failure to thrive (principal); I10 Essential (primary) hypertension
CPT/HCPCS: 36415; 80053; 82607; 85027

== ENCOUNTER 2021-01-17 12:40 | Inpatient (IN) | payer OTHER | END 2021-02-17 09:08 | disposition still patient (30) | LOC: PAVC 12:40 | PROVIDERS: ADMIT Internal Medicine; ATTEND Internal Medicine ==

== ENCOUNTER 2021-02-17 09:30 | Inpatient (IN) | payer OTHER | END 2021-03-20 08:57 | disposition still patient (30) | LOC: PAVC 09:30 | PROVIDERS: ADMIT Internal Medicine; ATTEND Internal Medicine ==

== ENCOUNTER 2021-03-20 13:06 | Inpatient (IN) | payer OTHER | END 2021-04-17 09:08 | disposition still patient (30) | LOC: PAVC 13:06 | PROVIDERS: ADMIT Internal Medicine; ATTEND Internal Medicine ==

== ENCOUNTER 2021-04-17 14:08 | Inpatient (IN) | payer OTHER | END 2021-05-18 14:14 | disposition still patient (30) | LOC: PAVC 14:08 | PROVIDERS: ADMIT Internal Medicine; ATTEND Internal Medicine ==

== ENCOUNTER 2021-05-18 15:26 | Inpatient (IN) | payer OTHER | END 2021-06-17 10:39 | disposition still patient (30) | LOC: PAVC 15:26 | PROVIDERS: ADMIT Internal Medicine; ATTEND Internal Medicine ==

== ENCOUNTER 2021-06-17 02:29 | Inpatient (IN) | payer OTHER | END 2021-07-18 09:59 | disposition still patient (30) | LOC: PAVC 02:29 | PROVIDERS: ADMIT Internal Medicine; ATTEND Internal Medicine ==

== ENCOUNTER 2021-07-18 06:19 | Outpatient (CLI) | payer OTHER ==
[2021-07-18 07:58] LABS: POTASSIUM 3.4 mmol/L (3.6-5.2)
[2021-07-18 08:15] LABS: PLATELET COUNT 147 K/uL (142-355)
== END 2021-07-18 19:06 | disposition home or self-care (01) ==
LOC: LAB 06:19
PROVIDERS: ATTEND Internal Medicine
DX: R62.7 Adult failure to thrive (principal); Z12.5 Encounter for screening for malignant neoplasm of prostate
CPT/HCPCS: 80053; 82607; 84153; 85027

== ENCOUNTER 2021-07-18 16:06 | Inpatient (IN) | payer OTHER | END 2021-08-17 09:16 | disposition still patient (30) | LOC: PAVC 16:06 | PROVIDERS: ADMIT Internal Medicine; ATTEND Internal Medicine ==

== ENCOUNTER 2021-07-26 15:05 | Outpatient (CLI) | payer OTHER | END 2021-07-26 20:02 | disposition home or self-care (01) | LOC: CT 15:05 | PROVIDERS: ATTEND Internal Medicine | DX: I69.351 Hemiplegia and hemiparesis following cerebral infarction affecting right dominant side (principal); R53.1 Weakness ==

== ENCOUNTER 2021-08-17 13:02 | Inpatient (IN) | payer OTHER | END 2021-09-17 09:10 | disposition still patient (30) | LOC: PAVC 13:02 | PROVIDERS: ADMIT Internal Medicine; ATTEND Internal Medicine ==

== ENCOUNTER 2021-08-21 05:22 | Outpatient (CLI) | payer OTHER | END 2021-08-21 18:47 | disposition home or self-care (01) | LOC: LAB 05:22 | PROVIDERS: ATTEND Internal Medicine | DX: D51.0 Vitamin B12 deficiency anemia due to intrinsic factor deficiency (principal) ==

== ENCOUNTER 2021-08-28 03:46 | Outpatient (CLI) | payer OTHER | END 2021-08-28 18:48 | disposition home or self-care (01) | LOC: LAB 03:46 | PROVIDERS: ATTEND Internal Medicine | DX: D51.0 Vitamin B12 deficiency anemia due to intrinsic factor deficiency (principal) ==

== ENCOUNTER 2021-09-17 10:14 | Inpatient (IN) | payer OTHER | END 2021-10-18 09:13 | disposition still patient (30) | LOC: PAVC 10:14 | PROVIDERS: ADMIT Internal Medicine; ATTEND Internal Medicine ==

== ENCOUNTER 2021-10-18 14:52 | Inpatient (IN) | payer OTHER | END 2021-11-17 10:38 | disposition still patient (30) | LOC: PAVC 14:52 | PROVIDERS: ADMIT Internal Medicine Endocrinology, Diabetes & Metabolism; ATTEND Internal Medicine Endocrinology, Diabetes & Metabolism ==

== ENCOUNTER 2021-11-17 14:07 | Inpatient (IN) | payer OTHER | END 2021-12-18 12:14 | disposition still patient (30) | LOC: PAVC 14:07 | PROVIDERS: ADMIT Internal Medicine Endocrinology, Diabetes & Metabolism; ATTEND Internal Medicine Endocrinology, Diabetes & Metabolism ==

== ENCOUNTER 2021-11-19 06:41 | Outpatient (CLI) | payer OTHER | END 2021-11-19 20:35 | disposition home or self-care (01) | LOC: LAB 06:41 | PROVIDERS: ATTEND Internal Medicine Endocrinology, Diabetes & Metabolism | DX: D51.0 Vitamin B12 deficiency anemia due to intrinsic factor deficiency (principal) | CPT/HCPCS: 82607 ==

== ENCOUNTER 2021-12-18 13:52 | Inpatient (IN) | payer OTHER | END 2022-01-17 15:30 | disposition still patient (30) | LOC: PAVC 13:52 | PROVIDERS: ADMIT Internal Medicine Endocrinology, Diabetes & Metabolism; ATTEND Internal Medicine Endocrinology, Diabetes & Metabolism ==

== ENCOUNTER 2022-01-01 13:12 | Outpatient (CLI) | payer OTHER | END 2022-01-01 20:01 | disposition home or self-care (01) | LOC: US 13:12 | PROVIDERS: ATTEND Internal Medicine Endocrinology, Diabetes & Metabolism | DX: R60.0 Localized edema (principal) ==

== ENCOUNTER 2022-01-03 11:03 | Outpatient (CLI) | payer OTHER | END 2022-01-03 18:58 | disposition home or self-care (01) | LOC: US 11:03 | PROVIDERS: ATTEND Internal Medicine Endocrinology, Diabetes & Metabolism | DX: R60.0 Localized edema (principal) ==

== ENCOUNTER 2022-01-12 11:55 | Emergency (ER) | payer OTHER ==
[~2022-01-12] VITALS: Ht 172.7 cm; Wt 72.1 kg
[2022-01-12 11:56] VITALS: TEMP 98.5
[2022-01-12 12:46] LABS: PLATELET COUNT 191 K/uL (142-355)
[2022-01-12 12:51] LABS: POTASSIUM 4.4 mmol/L (3.6-5.2)
[2022-01-12 13:23] VITALS: BP 130/62
== END 2022-01-12 13:23 ==
LOC: ED 11:56
PROVIDERS: Emergency Medicine
DX: L03.116 Cellulitis of left lower limb (principal); R22.42 Localized swelling, mass and lump, left lower limb
CPT/HCPCS: 80048; 83605; 85027; 99283

== ENCOUNTER 2022-01-17 09:12 | Outpatient (CLI) | payer OTHER ==
[2022-01-17 09:35] LABS: PLATELET COUNT 216 K/uL (142-355)
[2022-01-17 09:50] LABS: POTASSIUM 4.5 mmol/L (3.6-5.2)
== END 2022-01-17 19:01 | disposition home or self-care (01) ==
LOC: LAB 09:12
PROVIDERS: ATTEND Internal Medicine Endocrinology, Diabetes & Metabolism
DX: R62.7 Adult failure to thrive (principal); I10 Essential (primary) hypertension; D51.0 Vitamin B12 deficiency anemia due to intrinsic factor deficiency
CPT/HCPCS: 80053; 82607; 85027

== ENCOUNTER 2022-01-17 16:08 | Inpatient (IN) | payer OTHER | END 2022-02-17 10:50 | disposition still patient (30) | LOC: PAVC 16:08 | PROVIDERS: ADMIT Internal Medicine Endocrinology, Diabetes & Metabolism; ATTEND Internal Medicine Endocrinology, Diabetes & Metabolism ==

== ENCOUNTER 2022-02-17 14:17 | Inpatient (IN) | payer OTHER | END 2022-03-20 09:27 | disposition still patient (30) | LOC: PAVC 14:17 | PROVIDERS: ADMIT Internal Medicine Endocrinology, Diabetes & Metabolism; ATTEND Internal Medicine Endocrinology, Diabetes & Metabolism ==

== ENCOUNTER 2022-03-20 12:22 | Inpatient (IN) | payer OTHER | END 2022-04-17 15:20 | disposition still patient (30) | LOC: PAVC 12:22 | PROVIDERS: ADMIT Internal Medicine Endocrinology, Diabetes & Metabolism; ATTEND Internal Medicine Endocrinology, Diabetes & Metabolism ==

== ENCOUNTER 2022-04-17 16:08 | Inpatient (IN) | payer OTHER | END 2022-05-18 12:52 | disposition still patient (30) | LOC: PAVC 16:08 | PROVIDERS: ADMIT Internal Medicine Endocrinology, Diabetes & Metabolism; ATTEND Internal Medicine Endocrinology, Diabetes & Metabolism ==

== ENCOUNTER → 2022-05-16 | Outpatient (CLI) | payer OTHER ==
[2022-05-16 09:01] LABS: PLATELET COUNT 158 K/uL (142-355)
[2022-05-16 09:14] LABS: POTASSIUM 3.8 mmol/L (3.6-5.2)
== END ==
LOC: LAB 08:01
PROVIDERS: ATTEND Family Medicine
DX: R50.9 Fever, unspecified (principal); R11.0 Nausea; L03.116 Cellulitis of left lower limb
CPT/HCPCS: 36415; 80053; 81000; 85027; 87040

== ENCOUNTER 2022-05-18 13:18 | Inpatient (IN) | payer OTHER | END 2022-06-17 16:42 | disposition still patient (30) | LOC: PAVC 13:18 | PROVIDERS: ADMIT Family Medicine; ATTEND Family Medicine ==

== ENCOUNTER 2022-06-17 17:32 | Inpatient (IN) | payer OTHER | END 2022-07-18 12:19 | disposition still patient (30) | LOC: PAVC 17:32 | PROVIDERS: ADMIT Family Medicine; ATTEND Family Medicine ==

== ENCOUNTER 2022-07-18 12:25 | Inpatient (IN) | payer OTHER | END 2022-08-17 17:42 | disposition still patient (30) | LOC: PAVC 12:25 | PROVIDERS: ADMIT Family Medicine; ATTEND Family Medicine ==

== ENCOUNTER 2022-07-22 10:11 | Outpatient (CLI) | payer OTHER ==
[2022-07-22 11:01] LABS: PLATELET COUNT 147 K/uL (142-355)
[2022-07-22 11:23] LABS: POTASSIUM 3.5 mmol/L (3.6-5.2)
== END 2022-07-22 19:22 | disposition home or self-care (01) ==
LOC: LAB 10:11
PROVIDERS: ATTEND Family Medicine
DX: N42.9 Disorder of prostate, unspecified (principal); I10 Essential (primary) hypertension; R62.7 Adult failure to thrive
CPT/HCPCS: 80053; 82607; 84153; 85027

== ENCOUNTER 2022-09-17 12:29 | Outpatient (CLI) | payer OTHER ==
[2022-09-17 13:18] LABS: PLATELET COUNT 171 K/uL (142-355)
[2022-09-17 13:26] LABS: POTASSIUM 3.9 mmol/L (3.6-5.2)
== END 2022-09-17 20:25 | disposition home or self-care (01) ==
LOC: LAB 12:29
PROVIDERS: ATTEND Family Medicine
DX: I10 Essential (primary) hypertension (principal); L03.818 Cellulitis of other sites
CPT/HCPCS: 36415; 80053; 81002; 85027; 87040